=== PATIENT | male | born 1945 | race Caucasian/White ===

== ENCOUNTER 2017-12-03 13:08 | Outpatient (CLI) | payer MEDICARE ==
--- NOTE | 2017-12-03 15:21 | CT ---
CT ANGIOGRAM ABDOMEN AND PELVIS WITH AND WITHOUT CONTRAST: HISTORY: Abdominal aortic aneurysm. Poor circulation. COMPARISON: None. TECHNIQUE: CT angiogram of the chest before and after of the intravenous administration of contrast. Three-D re ndering was provided. In addition, a precontrast image of the abdomen and pelvis was performed. 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 Aortic stent gr aft is in place along with an aortoiliac bypass graft. These are patent. There is multifocal. Grea ter than 50% narrowing of the left common and external iliac artery. There is also multifocal less t [place] 50% narrowing of the right common iliac artery and external iliac artery. Internal iliac arterie s are patent. Celiac trunk and superior mesenteric arteries are patent. The liver is unremarkable. Multiple cysts in the right kidney. No hydronephrosis. No dilated loops of large or small bowel. The appendix is visualized and is normal. No free intraperitoneal gas or fluid. Calcifications are present in the prostate. Moderate to severe degenerative disk space height loss of L3-4 with end plate sclerosis. There is a posterior disk-osteophyte complex at L4-5 causing mild narrowing of the spinal canal. The is a [place] aortic aneurysm that measures up to 4.6 x 4.5 cm. Celiac artery and superior mesenteric arteries are patent. There are multiple ulcerative plaques. IMPRESSION: 1. Patent aortoiliac stent graft and aortic graft. 2. 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 3. Multifocal less than 50% narrowing in the right common and external iliac arteries. 4. 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 5. Second portion duodenum diverticulum. 6. Multiple renal cysts. POS: [facility]
[2017-12-03] MEDS ORDERED: Iopamidol 370 76% 100 ML VIAL ONE (16:30)
== END 2017-12-03 13:09 | disposition home or self-care (01) ==
LOC: CT 13:08
PROVIDERS: ATTEND Thoracic Surgery (Cardiothoracic Vascular Surgery)
DX: I71.4 Abdominal aortic aneurysm, without rupture (principal); I77.1 Stricture of artery; N28.1 Cyst of kidney, acquired; K57.10 Diverticulosis of small intestine without perforation or abscess without bleeding; Z96.0 Presence of urogenital implants
CPT/HCPCS: 74174; 82565

== ENCOUNTER 2018-01-29 09:32 | Outpatient (CLI) | payer MEDICARE ==
--- NOTE | 2018-01-29 14:53 | NM ---
BONE SCAN: HISTORY: Left-sided posterior chest and rib pain. FINDINGS: Whole body bone scan. Dose is 31 mCi of Technetium 99m MDP. Anterior and posterior whole body delayed images obtained. 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 Activity is seen in the right kid samina. No evidence of areas of increased abnormalities or uptake seen in the osseous structures to sug gest increased bony metabolic activity. Some areas of activity are seen in the right knee compatible with right knee arthritic changes. IMPRESSION: No evidence of rib or other significant osseous lesion seen. POS: [facility]
== END 2018-01-29 09:33 | disposition home or self-care (01) ==
LOC: NM 09:32
PROVIDERS: ATTEND Internal Medicine
DX: R07.81 Pleurodynia (principal); R10.9 Unspecified abdominal pain
CPT/HCPCS: 78306; A9503

== ENCOUNTER 2022-12-27 13:09 | Emergency (ER) | payer MEDICARE, OTHER ==
[2022-12-27 14:45] LABS: ALT (SGPT) 26 U/L (8-55); AST (SGOT) 17 U/L (5-34); Albumin 4.1 g/dL (3.4-4.8); Alkaline Phosphatase 111 U/L (40-110); Anion Gap 16 mmol/L (10-20); BUN (Urea Nitrogen) 42 mg/dL (8.4-25.7); Bilirubin, Total 0.8 mg/dL (0.2-1.2); Calc. Creatinine Clearance 0 mL/min (70-130); Calcium 10.2 mg/dL (7.8-10.44); Carbon Dioxide 28 mmol/L (23-31); Chloride 98 mmol/L (98-107); Estimated GFR 32; Globulin 3.4 g/dL (2.4-3.5); Glucose 369 mg/dL (83-110); Lipase 55 U/L (8-78); Protein, Total 7.5 g/dL (5.8-8.1); Sodium 138 mmol/L (136-145)
== END 2022-12-27 16:34 | disposition home or self-care (01) ==
LOC: ERS 13:09
DX: R60.9 Edema, unspecified (principal); E11.9 Type 2 diabetes mellitus without complications; I10 Essential (primary) hypertension; E78.5 Hyperlipidemia, unspecified; Z79.899 Other long term (current) drug therapy; Z79.82 Long term (current) use of aspirin
CPT/HCPCS: 36415; 71045; 80053; 83690; 83880; 84484; 85379; 93970